=== PATIENT | female | born 1960 | race Caucasian/White ===

== ENCOUNTER → 2018-03-16 | Outpatient (CLI) | payer OTHER, SELFPAY ==
[~2018-03-16] MED LIST: AZEL50GE2 TP
== END | disposition home or self-care (01) ==
LOC: RAH 10:15
PROVIDERS: ATTEND Obstetrics & Gynecology
DX: Z12.31 Encounter for screening mammogram for malignant neoplasm of breast (principal)
CPT/HCPCS: 77067

== ENCOUNTER → 2018-07-14 | Outpatient (CLI) | payer OTHER | END | disposition home or self-care (01) | LOC: RAH 13:48 | PROVIDERS: ATTEND Neurological Surgery | DX: M41.86 Other forms of scoliosis, lumbar region (principal); M47.26 Other spondylosis with radiculopathy, lumbar region; M51.26 Other intervertebral disc displacement, lumbar region; M54.42 Lumbago with sciatica, left side; M54.41 Lumbago with sciatica, right side; M25.78 Osteophyte, vertebrae | CPT/HCPCS: 72131 ==

== ENCOUNTER → 2018-09-05 | Outpatient (CLI) | payer OTHER | END | disposition home or self-care (01) | LOC: SHCH 08:42 | PROVIDERS: ATTEND Internal Medicine Cardiovascular Disease | DX: I35.1 Nonrheumatic aortic (valve) insufficiency (principal); I51.7 Cardiomegaly | CPT/HCPCS: 93306 ==

== ENCOUNTER 2019-01-16 07:47 | Emergency (ER) | payer OTHER ==
[2019-01-16] MEDS ORDERED: OXYMETAZOLINE HCL SPRAY 15 ML BOTTLE ONE (08:52)
== END 2019-01-16 10:28 | disposition home or self-care (01) ==
LOC: EDH 07:47
DX: R04.0 Epistaxis (principal); Z88.1 Allergy status to other antibiotic agents
CPT/HCPCS: 30901

== ENCOUNTER → 2019-01-30 | Outpatient (CLI) | payer OTHER | END | disposition home or self-care (01) | LOC: RAH 13:11 | PROVIDERS: ATTEND Neurological Surgery | DX: M47.22 Other spondylosis with radiculopathy, cervical region (principal); M48.02 Spinal stenosis, cervical region; M75.101 Unspecified rotator cuff tear or rupture of right shoulder, not specified as traumatic; M79.601 Pain in right arm; M19.011 Primary osteoarthritis, right shoulder | CPT/HCPCS: 72141; 73221 ==

== ENCOUNTER 2019-05-22 03:00 | Emergency (ER) | payer OTHER ==
[2019-05-22 03:25] LABS: APPEARANCE,URINE Turbid (CLEAR); BILIRUBIN,URINE Negative (NEGATIVE); COLOR,URINE Dark Yellow (YELLOW); GLUCOSE, URINE (UA) Negative (NEGATIVE); KETONES,URINE 40 mg/dL (NEGATIVE); LEUKOCYTE ESTERASE ,URINE Small (NEGATIVE); NITRATE,URINE Negative (NEGATIVE); OCCULT BLOOD,URINE Large (NEGATIVE); PH,URINE 5.5 (5.0-8.0); PROTEIN,URINE POS 1+ mg/dL (NEGATIVE)
[2019-05-22 03:46] LABS: BACTERIA,URINE Many /HPF (None Seen); MUCUS,URINE Few LPF (None Seen); SQUAMOUS EPITHELIAL CELL,UR Moderate /HPF (0-2)
[2019-05-22] MEDS ORDERED: KETOROLAC TROMETHAMINE 30MG/ML ONE (03:47)
[2019-05-22] MEDS ORDERED: ONDANSETRON HCL 4 MG/2 ML VIAL ONE (03:47)
[2019-05-22] MEDS ORDERED: CEFTRIAXONE SODIUM 2 GM VIAL ONE (03:47)
[2019-05-22] MEDS ORDERED: SODIUM CHLORIDE 0.9% 1000ML 1,000 ML IV ONE (03:49)
[2019-05-22 03:50] LABS: BASOPHILS % (AUTO) 0.4 % (0.0-5.0); EOSINOPHILS % (AUTO) 0.6 % (0.0-8.0); HEMATOCRIT 47.5 % (36-48); LYMPHOCYTES % (AUTO) 11.7 % (21.0-51.0); MEAN CORPUSCULAR HEMOGLOBIN 32.5 pg (27.0-33.0); MEAN CORPUSCULAR HGB CONC 34.6 g/dL (32.0-36.0); MEAN CORPUSCULAR VOLUME 94.1 fL (79-99); NEUTROPHILS % (AUTO) 81.3 % (40.0-77.0); PLATELET COUNT (AUTO) 332 K/uL (130-400); RED BLOOD CELL COUNT(AUTO) 5.05 MIL/uL (4.00-5.50); RED CELL DISTRIBUTION WIDTH 12.7 % (11.0-15.5); WHITE BLOOD COUNT (AUTO) 11.8 K/uL (4.8-10.8)
[2019-05-22 03:58] LABS: CARBON DIOXIDE 24 mmol/L (21-32); CHLORIDE 96 mmol/L (101-111); CREATININE 1.2 mg/dL (0.5-1.5); GLOMERULAR FILTR. RATE CALC 49 mL/min (>60); GLUCOSE,RANDOM 115 mg/dL (70-105); POTASSIUM 3.8 mmol/L (3.5-5.1); SODIUM SERUM 134 mmol/L (136-145); UREA NITROGEN, BLOOD 21 mg/dL (7-18)
[2019-05-22 04:01] LABS: INR 0.95 (0.85-1.15); PARTIAL THROMBOPLASTIN TIME 26.4 SEC (26.3-35.5)
[2019-05-22 04:10] LABS: ALANINE AMINOTRANSFERASE 19 U/L (12-78); ALBUMIN 4.3 g/dL (3.5-5.0); ASPARTATE AMINOTRANSFERASE 19 U/L (10-37); BILIRUBIN,TOTAL 1.6 mg/dL (0.2-1.0); CREATINE KINASE, TOTAL 41 U/L (21-232); MYOGLOBIN 48 ng/mL (10-92); TOTAL PROTEIN, SERUM 8.8 g/dL (6.0-8.3); TROPONIN I < 0.04 ng/mL (0.00-0.06)
== END 2019-05-22 07:21 | disposition home or self-care (01) ==
LOC: EDH 03:00
DX: K52.9 Noninfective gastroenteritis and colitis, unspecified (principal)
CPT/HCPCS: 36415; 71045; 74176; 80053; 81001; 82550; 83605; 83874; 84484; 85025; 85610; 85730; 87040 ×2; 87077; 87088; 87186; 93005; 96361; 96374; 96375; 99285; J0696; J1885; J2405; J7030

== ENCOUNTER 2021-12-30 05:59 | Day surgery (SDC) | payer OTHER ==
[~2021-12-30 05:59] MED LIST changes: +CALCIUM PO; +COLLAGEN PO; +DULO30CA52 PO; +MULT-1367 PO; +PREG225C7 PO; +VITAMIN D PO
[2021-12-30] MEDS ORDERED: ISOVUE-M 200 20 ML VIAL IT ONE (08:33)
[2021-12-30 08:36] LABS: INR 0.97 (0.85-1.15); PROTHROMBIN TIME 10.6 SEC (9.6-11.6)
[2021-12-30 08:37] LABS: PARTIAL THROMBOPLASTIN TIME 31.2 SEC (26.3-35.5)
[2021-12-30 10:24] VITALS: BP 150/80
[2021-12-30 10:54] VITALS: BP 150/79
[2021-12-30] MEDS ORDERED: LIDOCAINE HCL MPF 1% 5ML VIAL ONE (14:49)
== END 2021-12-30 11:45 | disposition home or self-care (01) ==
LOC: DAH 05:59 → EDSTATUS 08:00 → DAH 11:45
PROVIDERS: ATTEND Neurological Surgery
DX: M43.16 Spondylolisthesis, lumbar region (principal); M48.061 Spinal stenosis, lumbar region without neurogenic claudication; M47.816 Spondylosis without myelopathy or radiculopathy, lumbar region; M51.36 Other intervertebral disc degeneration, lumbar region; M54.42 Lumbago with sciatica, left side; M54.41 Lumbago with sciatica, right side; G89.4 Chronic pain syndrome; Z79.01 Long term (current) use of anticoagulants; Z79.899 Other long term (current) drug therapy
CPT/HCPCS: 36415; 62304; 72132; 85610; 85730; J3490; Q9966

== ENCOUNTER → 2022-03-11 | Outpatient (CLI) | payer OTHER | END | disposition home or self-care (01) | LOC: RAH 07:53 | PROVIDERS: ATTEND Podiatrist | DX: S86.301A Unspecified injury of muscle(s) and tendon(s) of peroneal muscle group at lower leg level, right leg, initial encounter (principal); M25.471 Effusion, right ankle; M25.571 Pain in right ankle and joints of right foot; M94.8X7 Other specified disorders of cartilage, ankle and foot; X58.XXXA Exposure to other specified factors, initial encounter; Y93.89 Activity, other specified; Y92.89 Other specified places as the place of occurrence of the external cause; Y99.8 Other external cause status | CPT/HCPCS: 73721 ==

== ENCOUNTER → 2022-07-15 | Outpatient (CLI) | payer OTHER | END | disposition home or self-care (01) | LOC: RAH 09:37 | PROVIDERS: ATTEND Obstetrics & Gynecology | DX: Z12.31 Encounter for screening mammogram for malignant neoplasm of breast (principal) | CPT/HCPCS: 77067 ==

== ENCOUNTER → 2022-11-02 | Outpatient (CLI) | payer OTHER ==
[2022-11-02 11:29] LABS: CREATININE 0.8 mg/dL (0.5-1.5); POTASSIUM 4.1 mmol/L (3.5-5.1)
== END | disposition home or self-care (01) ==
LOC: LAB 09:38
PROVIDERS: ATTEND Physical Medicine & Rehabilitation
DX: M54.50 Low back pain, unspecified (principal)
CPT/HCPCS: 36415; 80156; 82310; 82435; 82565; 82947; 84132; 84295; 84520

== ENCOUNTER → 2023-08-19 | Outpatient (CLI) | payer OTHER ==
[~2023-08-19] MED LIST changes: -PREG225C7 PO; +PREG225C8 PO
== END | disposition home or self-care (01) ==
LOC: RAH 09:21
PROVIDERS: ATTEND Obstetrics & Gynecology
DX: Z12.31 Encounter for screening mammogram for malignant neoplasm of breast (principal)
CPT/HCPCS: 77067

== ENCOUNTER → 2024-09-05 | Outpatient (CLI) | payer OTHER ==
--- NOTE | 2024-09-05 11:17 | HMCIMG ---
MAMMO SCREENING BILATERAL HISTORY: Screening mammogram. COMPARISON: 08/19/2023 TECHNIQUE: Bilateral screening mammogram with CAD was performed with craniocaudal and mediolateral oblique projections. FINDINGS: There are scattered areas of fibroglandular density. There is no evidence of a dominant mass, or suspicious microcalcification. There is no evidence of nipple retraction or skin thickening. IMPRESSION: 1. Stable mammogram. Patient was entered into a reminder system with a target due date for their next mammogram. BI-RADS: CATEGORY 2: BENIGN FINDINGS Recommend monthly self breast exam as well as annual clinical examination. A negative x-ray should not delay biopsy if a dominant or clinically suspicious mass is present, since 8-10% of cancers are not identified by mammography. Dense breasts particularly, may obscure an underlying neoplasm. Some of these may be detected clinically and therefore, clinical examination is an essential part of breast evaluation.
== END | disposition home or self-care (01) ==
LOC: RAH 10:15
PROVIDERS: ATTEND Family Medicine
DX: Z12.31 Encounter for screening mammogram for malignant neoplasm of breast (principal); R92.323 Mammographic fibroglandular density, bilateral breasts
CPT/HCPCS: 77067

== ENCOUNTER 2025-08-23 09:44 | Emergency (ER) | payer MEDICARE ==
[~2025-08-23] VITALS: Ht 172.7 cm; Wt 80.0 kg
--- NOTE | 2025-08-23 11:15 | HMCIMG ---
EXAM: CT Head Without IV contrast. CLINICAL HISTORY: fall TECHNIQUE: Axial computed tomography images of the head/brain without intravenous contrast. COMPARISON: None provided. FINDINGS: BRAIN: No evidence of acute hemorrhage. No mass lesion. No CT evidence for acute territorial infarct. No midline shift or extra-axial collections. VENTRICLES: No hydrocephalus. ORBITS: The orbits are unremarkable. SINUSES AND MASTOIDS: The paranasal sinuses and mastoid air cells are clear. BONES: No fracture. SOFT TISSUES: Unremarkable. IMPRESSION: No acute intracranial abnormality. /[place]
[2025-08-23] MEDS ORDERED: NAPR-1196 PO (12:24)
--- NOTE | 2025-08-23 12:24 | ERN ---
ED Note History of Present Illness Stated Complaint: RT FOOT, LEFT ELBOW, FALL Chief Complaint: Mechanical Fall Time Seen by MD: 09:55 Dictation: 65-year-old female who fell yesterday from ladder two steps injured her right ankle area left elbow and bumped the back of her head no LOC no blood thinners says she feels better but her right foot and ankle area is still hurting with bearing weight. Allergies: Coded Allergies: doxycycline (Unverified Allergy, Unknown, 05/22/19) Home Meds Reported Medications [Collagen] No Conflict Check, 6 MG PO DAILY 12/29/21 [Calcium ] No Conflict Check, 600 MG PO DAILY 12/29/21 [Vitamin D] No Conflict Check, 2800 UNITS PO DAILY 12/29/21 Multivitamin (Multivitamin) 1 Each Tablet, 1 EACH PO DAILY, TAB 12/29/21 Duloxetine HCl (Duloxetine HCl) 30 Mg Capsule.dr, 30 MG PO BID, CAP 12/29/21 Pregabalin (Pregabalin) 225 Mg Capsule, 225 MG PO BID, CAP 12/29/21 Azelaic Acid (Finacea) 50 Gm Gel..gram., 1 APPL TP BID 01/28/17 Past Medical History Past Medical History: Heart Disease, Other Additional Past Medical Hx: NEUROPATHY, SVT Surgical History: Cholecystectomy Surgical History Other: CARIDAC ABLATION, EYE, NOSE, BACK Review of System Dictation Constitutional: Negative for fever,chills, and weight loss Eyes: Negative for injury, pain,redness, and discharge ENT: Negative for injury,pain or swelling Cardiovascular: Negative for chest pain, palpitations, and edema Respiratory: Negative for shortness of breath, cough, and wheezing, Abdomen/GI: Negative for abdominal pain, nausea, vomiting, diarrhea, and constipation Back: Negative for injury and pain : Negative for injury, bleeding and discharge MS/Extremity: Per HPI Skin: Negative for rash, and discoloration Neuro: Per H PI Initial Vital Sign VS Vital Signs Date Time Temp Pulse Resp B/P (MAP) Pulse Ox O2 Delivery O2 Flow Rate FiO2 08/23/25 09:46 98.2 73 16 143/69 99 Room Air* 0 21 Physical Exam Dictation General: awake, alert, NAD Head/Face: Normocephalic, atraumatic Eyes: PERRL, EOMI, vision at baseline ENT: oral cavity clear, TMs clear, no signs of infection Neck: Trachea midline, supple, no nuchal rigidity Cardiovascular: RRR, normal S1/S2, No MRGs, no JVD Respiratory: CTAB, no respiratory distress, No rales or wheezes Abdomen: Soft, non-tender, non-distended, normal bowel sounds, no guarding or rebound. Skin: Warm, dry, normal turgor, no rash MS/Extremity: Pulses equal, no cyanosis, neurovascular intact, FROM, superficial contusion to the right ankle lateral aspect closed neurovascularly intact distally good pulses, contusion to left elbow closed full range of motion neurovascularly intact distally Neuro: COAx4, GCS 15, strength 5/5, CN 2-12 intact, normal cerebellar exam, normal gait, Psych: Normal behavior, mood, and affect normal ED Course ED Course Orders Procedure Category Date Status Time Ct Head/Brain W/O CT 08/23/25 Resulted Contrast 10:14 Elbow Comp 3+Vws Lt RAD 08/23/25 Taken 10:14 Ankle Comp 3vws Rt RAD 08/23/25 Taken 10:14 Hydrocodone/Apap PHA 08/23/25 Complete 10/325 Tab ([place] 10) 10:14 Tetanus,Diphtheria PHA 08/23/25 Complete Tox [Adult] (Diphther 10:30 Current Medications Medications (Trade) Dose Ordered Sig/Balwinder Route PRN Reason Start Time Stop Time Status Last Admin Dose Admin Acetaminophen/ Hydrocodone Bitart (NORco 10) 1 tab ONCE STAT PO 08/23/25 10:14 08/23/25 10:18 DC Tetanus/ Diphtheria Toxoids Adsorbed (DiphthERIA-teTANUS TOXOID [ADULT]/ DECAVAC) 0.5 ml ONCE ONCE IM 08/23/25 10:30 08/23/25 10:31 DC 08/23/25 10:43 Vital Signs Date Time Temp Pulse Resp B/P (MAP) Pulse Ox O2 Delivery O2 Flow Rate FiO2 08/23/25 09:47 98.2 73 16 143/69 99 Room Air 0 08/23/25 09:46 98.2 73 16 143/69 99 Room Air* 0 21 Medical Decision Making MDM MDM: Differential diagnosis: Rationale: Tests considered and ordered secondary to shared decision making include: Previous outside records reviewed: Old ER visits. Risk of complication and/or morbidity or mortality of patient management: None Medications-Per medication reconciliation Need for hospitalization: Patient does not meet criteria for hospitalization. Need for emergency major/minor surgery: No There are no social concerns with this patient. Prescription drug management Prescriptions will include symptomatic care Patient's prior external medical records from other ER visits were reviewed by me as indicated. Prior testing and results from previous visits were reviewed. Prior tests were taken into account with medical decision making and resource utilization, independent historian/historians were used to obtain complete medical history. I independently interpreted the test that were performed, results were reviewed by me and considered findings on radiology if ordered. Medical management and examination interpretation discussions were had by me with other qualified healthcare professionals as indicated for the patient's care. 65-year-old female with fall contusion right foot ankle, left elbow, CT of the head negative, stable for discharge. DX & DISP Disposition: Discharge Departure Impression: Primary Impression: Fall Additional Impressions: Head injury consultation, Contusion of right ankle Condition: Stable Scripts Naproxen (Naproxen) 250 Mg Tablet 250 MG PO BID for 5 Days, #10 TAB Prov: ANDRE WHITE MD 08/23/25 Referrals: LEANNE LUBIN MD (PCP) ANDRE WHITE MD Aug 23, 2025 12:24
--- NOTE | 2025-08-23 12:53 | NUR ---
EDUCATION WAS PROVIDED TO THE PATIENT ON THE USE OF CRUTCHES.
[2025-08-23 13:10] VITALS: BP 142/68; PULSE 73; RESP 16; TEMP 98.2; O2SAT 97
== END 2025-08-23 13:12 | disposition home or self-care (01) ==
LOC: EDH 09:44
DX: S90.01XA Contusion of right ankle, initial encounter (principal); S50.02XA Contusion of left elbow, initial encounter; S00.93XA Contusion of unspecified part of head, initial encounter; S90.811A Abrasion, right foot, initial encounter; Z88.1 Allergy status to other antibiotic agents; Z79.899 Other long term (current) drug therapy; Z90.49 Acquired absence of other specified parts of digestive tract; W10.8XXA Fall (on) (from) other stairs and steps, initial encounter; Y93.89 Activity, other specified; Y92.89 Other specified places as the place of occurrence of the external cause; Y99.8 Other external cause status
CPT/HCPCS: 70450; 73080; 73610; 90471; 90714; 99285